=== PATIENT | female | born 1950 | race Caucasian/White ===

== ENCOUNTER 2018-03-02 13:52 | Emergency (ER) | payer MEDICARE, OTHER ==
[2018-03-02 14:14] LABS: ABSOLUTE EOSINOPHILS # (AUTO) 0.1 10^3/uL (0.0-0.6); ABSOLUTE LYMPHOCYTES (AUTO) 1.8 10^3/uL (0.5-4.7); ABSOLUTE MONOCYTES (AUTO) 0.3 10^3/uL (0.1-1.4); ABSOLUTE NEUT (AUTO) 3.5 10^3/uL (1.7-8.2); BASOPHILS % (AUTO) 0.7 % (0-2); EOSINOPHILS % (AUTO) 1.4 % (0-6); HEMATOCRIT 37.9 % (36.0-47.0); HEMOGLOBIN 12.6 g/dL (12.0-15.5); LYMPHOCYTES % (AUTO) 30.9 % (13-45); MEAN CORPUSCULAR HEMOGLOBIN 35.4 pg (27.0-33.4); MEAN CORPUSCULAR HGB CONC 33.2 g/dL (32.0-36.0); MEAN CORPUSCULAR VOLUME 107 fl (80-97); MONOCYTES % (AUTO) 5.8 % (3-13); PLATELET COUNT 107 10^3/uL (150-450); RED BLOOD COUNT 3.56 10^6/uL (3.72-5.28); RED CELL DISTRIBUTION WIDTH 20.2 % (11.5-14.0); SEGMENTED NEUTROPHILS % (AUTO) 61.2 % (42-78); TOTAL CELLS COUNTED % (AUTO) 100 %; WHITE BLOOD COUNT 5.8 10^3/uL (4.0-10.5)
[2018-03-02 14:40] LABS: ALANINE AMINOTRANSFERASE 25 U/L (9-52); ALBUMIN 2.7 g/dL (3.5-5.0); ALKALINE PHOSPHATASE 118 U/L (38-126); ANION GAP 13 (5-19); ASPARTATE AMINO TRANSFERASE 62 U/L (14-36); BILIRUBIN,DIRECT 0.5 mg/dL (0.0-0.4); BILIRUBIN,TOTAL 2.6 mg/dL (0.2-1.3); BLOOD UREA NITROGEN 22 mg/dL (7-20); CALCIUM 8.6 mg/dL (8.4-10.2); CARBON DIOXIDE 22 mmol/L (22-30); CHLORIDE 105 mmol/L (98-107); GLUCOSE 146 mg/dL (75-110); POTASSIUM 3.7 mmol/L (3.6-5.0); SODIUM 140.1 mmol/L (137-145); TOTAL PROTEIN 6.5 g/dL (6.3-8.2)
[2018-03-02] MEDS ORDERED: NORMAL SALINE 1000 ML 1,000 ML IV ONE (14:43)
--- NOTE | 2018-03-02 15:25 | ER Document Report ---
ED General - General Chief Complaint: General Weakness Stated Complaint: WEAKNESS Time Seen by Provider: 03/02/18 15:07 TRAVEL OUTSIDE OF THE [place] IN LAST 30 DAYS: No - HPI Notes: Patient is a 67-year-old female that presents to the emergency department for chief complaint of generalized weakness. Patient reports nausea with no vomiting, diarrhea and fatigue for the last few days. She had an appointment in [place] with her doctor today and was attempting to get a bath but was unable to get off the toilet. Patient states she sat there for 2 hours until family showed up to pick her up for her doctor's appointment. Family was unable to get her off the commode as well and called EMS. Patient has severe lymphedema and states she usually has a hard time getting around but this is more weakness than usual. She reports she has recently had foul-smelling urine and some urinary incontinence. She denies any fever, cough, congestion, shortness of breath, chest pain. She does state that she occasionally has some pain in her lower abdomen. Patient's family states that sometimes it looks like she has a mass on her right side. Past Medical History: Lymphedema Past Surgical History: Reviewed in chart Social History: Denies drugs alcohol and tobacco Family History: Reviewed and noncontributory for presenting illness Allergies: Reviewed, see documented allergy list. REVIEW OF SYSTEMS: CONSTITUTIONAL : No fever No chills No diaphoresis No recent illness Fatigue EENT: No vision changes No congestion No sore throat CARDIOVASCULAR: No chest pain No palpitations RESPIRATORY: No shortness of breath No cough No difficulty breathing GASTROINTESTINAL: abdominal pain nausea No vomiting diarrhea GENITOURINARY: No dysuria Urinary incontinence Foul-smelling urine No hematuria No difficulty urinating MUSCULOSKELETAL: No back pain No leg pain No arm pain SKIN: No rashes No lesions LYMPHATIC: No swollen, enlarged glands. NEUROLOGICAL: No lightheadedness No headache No weakness No paresthesias PSYCHIATRIC: No anxiety No depression PHYSICAL EXAMINATION: Vital signs reviewed, nursing noted reviewed. GENERAL: Obese and in no acute distress. HEAD: Atraumatic, normocephalic. EYES: Eyes appear normal, extraocular movements intact, sclera anicteric, conjunctiva are normal. ENT: nares patent, oropharynx clear without exudates. Moist mucous membranes. NECK: Normal range of motion, supple without lymphadenopathy LUNGS: Breath sounds clear to auscultation bilaterally and equal. No wheezes rales or rhonchi. HEART: Regular rate and rhythm without murmurs ABDOMEN: Body habitus limits abdominal exam. There are no appreciable masses. Patient has no tenderness or peritoneal signs EXTREMITIES: Nontender, good range of motion, severe lymphedema to bilateral legs. NEUROLOGICAL: No focal neurological deficits. Moves all extremities spontaneously Motor and sensory grossly intact on exam. PSYCH: Normal mood, normal affect. SKIN: Warm, Dry, normal turgor, left heel wound - Related Data Allergies/Adverse Reactions: acetaminophen [From Darvocet-N] Allergy (Verified 03/02/18 14:31) Penicillins Allergy (Verified 03/02/18 14:31) propoxyphene [From Darvocet-N] Allergy (Verified 03/02/18 14:31) Sulfa (Sulfonamide Antibiotics) Allergy (Verified 03/02/18 14:31) Past Medical History - Social History Smoking Status: Never Smoker Family History: Reviewed & Not Pertinent Physical Exam - Vital signs Vitals: Resp 20 03/02/18 14:02 Course - Re-evaluation Re-evalutation: 03/02/18 15:24 Vitals reviewed. Nursing notes reviewed. Patient has elevated total bilirubin on lab work and family reports a history of cirrhosis. She is having some vague complaints of swelling versus mass versus pain in her right side, CT scan will be ordered to further delineate etiology. 03/02/18 17:44 Patient reevaluated and is feeling better. CT scan shows portal hypertension likely related to her cirrhosis. She also has some surrounding ascites. She does have some erythema to the underside of her pannus and panniculitis was seen on CT scan. Patient will be started on Keflex for her panniculitis. She is not septic and has a normal leukocytosis. Patient's family feels comfortable with her returning home. She will follow with her primary care doctor for further management of her lymphedema and hepatic issues. She is stable at discharge. Laboratory 03/02/18 03/02/18 03/02/18 13:10 13:10 13:10 WBC 5.8 RBC 3.56 L Hgb 12.6 Hct 37.9 MCV 107 H MCH 35.4 H MCHC 33.2 RDW 20.2 H Plt Count 107 L Seg Neutrophils % 61.2 Lymphocytes % 30.9 Monocytes % 5.8 Eosinophils % 1.4 Basophils % 0.7 Absolute Neutrophils 3.5 Absolute Lymphocytes 1.8 Absolute Monocytes 0.3 Absolute Eosinophils 0.1 Absolute Basophils 0.0 Sodium 140.1 Potassium 3.7 Chloride 105 Carbon Dioxide 22 Anion Gap 13 BUN 22 H Creatinine 1.06 Est GFR ( Amer) > 60 Est GFR (Non-Af Amer) 52 L Glucose 146 H Calcium 8.6 Total Bilirubin 2.6 H Direct Bilirubin 0.5 H Neonat Total Bilirubin Not Reportable Neonat Direct Bilirubin Not Reportable Neonat Indirect Bili Not Reportable AST 62 H ALT 25 Alkaline Phosphatase 118 Creatine Kinase 44 Total Protein 6.5 Albumin 2.7 L Urine Color Urine Appearance Urine pH Ur Specific [place] Urine Protein Urine Glucose (UA) Urine Ketones Urine Blood Urine Nitrite Urine Bilirubin Urine Urobilinogen Ur Leukocyte Esterase Urine WBC (Auto) Urine RBC (Auto) U Hyaline Cast (Auto) Urine Bacteria (Auto) Squamous Epi Cells Auto U Non-Squamous Epis Auto Urine Mucus (Auto) Urine Ascorbic Acid 03/02/18 15:50 WBC RBC Hgb Hct MCV MCH MCHC RDW Plt Count Seg Neutrophils % Lymphocytes % Monocytes % Eosinophils % Basophils % Absolute Neutrophils Absolute Lymphocytes Absolute Monocytes Absolute Eosinophils Absolute Basophils Sodium Potassium Chloride Carbon Dioxide Anion Gap BUN Creatinine Est GFR ( Amer) Est GFR (Non-Af Amer) Glucose Calcium Total Bilirubin Direct Bilirubin Neonat Total Bilirubin Neonat Direct Bilirubin Neonat Indirect Bili AST ALT Alkaline Phosphatase Creatine Kinase Total Protein Albumin Urine Color YELLOW Urine Appearance SLIGHTLY-CLOUDY Urine pH 7.0 Ur Specific [place] 1.008 Urine Protein NEGATIVE Urine Glucose (UA) 50 H Urine Ketones NEGATIVE Urine Blood MODERATE H Urine Nitrite NEGATIVE Urine Bilirubin NEGATIVE Urine Urobilinogen NEGATIVE Ur Leukocyte Esterase NEGATIVE Urine WBC (Auto) 7 Urine RBC (Auto) 1 U Hyaline Cast (Auto) 1 Urine Bacteria (Auto) TRACE Squamous Epi Cells Auto 5 U Non-Squamous Epis Auto 2 Urine Mucus (Auto) RARE Urine Ascorbic Acid NEGATIVE Abdomen/Pelvis CT 03/02/18 15:20 IMPRESSION: Portal hypertension with splenomegaly and ascites. Post cholecystectomy Panniculitis with diffuse edema throughout the abdominal wall panniculus - Vital Signs Vital signs: Temp Pulse Resp BP Pulse Ox 97.6 F 19 123/76 96 03/02/18 14:12 03/02/18 17:01 03/02/18 17:00 03/02/18 17:01 - Laboratory Result Diagrams: 03/02/18 13:10 03/02/18 13:10 Laboratory results interpreted by me: 03/02/18 03/02/18 03/02/18 13:10 13:10 15:50 RBC 3.56 L MCV 107 H MCH 35.4 H RDW 20.2 H Plt Count 107 L BUN 22 H Est GFR (Non-Af Amer) 52 L Glucose 146 H Total Bilirubin 2.6 H Direct Bilirubin 0.5 H AST 62 H Albumin 2.7 L Urine Glucose (UA) 50 H Urine Blood MODERATE H Discharge - Discharge Clinical Impression: Portal hypertension, Panniculitis, Generalized weakness Ascites Qualifiers: Ascites type: other type Qualified Code(s): R18.8 - Other ascites Condition: Stable Disposition: HOME, SELF-CARE Instructions: Cellulitis ([facility]) Additional Instructions: Please return to the emergency department if you have any worsening, or concern of your symptoms. Please return to the emergency department if you develop chest pain, difficulty breathing, severe abdominal pain, or ongoing vomiting. Please follow-up with your primary care physician in 2-3 days and any other recommended physicians. If prescribed, take all medications as directed. If you have any questions or concerns do not hesitate to return the emergency department for evaluation. Prescriptions: Cephalexin Monohydrate [Keflex 500 mg Capsule] 500 mg PO Q6H 5 Days capsule Referrals: ROBERTO WASHINGTON MD [Primary Care Provider] - Follow up in 3-5 days
[2018-03-02 16:22] LABS: APPEARANCE,URINE SLIGHTLY-CLOUDY; BILIRUBIN,URINE NEGATIVE (NEGATIVE); COLOR,URINE YELLOW; GLUCOSE, URINE 50 mg/dL (NEGATIVE); KETONES,URINE NEGATIVE (NEGATIVE); LEUKOCYTE ESTERASE,URINE NEGATIVE (NEGATIVE); NITRITE,URINE NEGATIVE (NEGATIVE); PROTEIN,URINE NEGATIVE (NEGATIVE); URINE SPECIFIC GRAVITY 1.008; UROBILINOGEN,URINE NEGATIVE mg/dL (<2.0)
--- NOTE | 2018-03-02 16:40 | RADIOLOGY REPORT (SQ) ---
EXAM DESCRIPTION: CT ABD/PELVIS WITH IV ONLY COMPLETED DATE/TIME: 03/02/2018 4:26 pm REASON FOR STUDY: elevated bili, RUQ pain COMPARISON: None. TECHNIQUE: CT scan of the abdomen and pelvis performed using helical scanning technique with dynamic intravenous contrast injection. No oral contrast. Images reviewed with lung, soft tissue, and bone windows. Reconstructed coronal and sagittal MPR images reviewed. Delayed images for evaluation of the urinary system also acquired. All images stored on PACS. All CT scanners at this facility use dose modulation, iterative reconstruction, and/or weight based d osing when appropriate to reduce radiation dose to as low as reasonably achievable (ALARA). [facility]: Dose Right [facility]: CareDose [facility]: Dose Right [facility]: Teradose 4D [facility]: Circadence CONTRAST TYPE AND DOSE: contrast/concentration: Isovue 350.00 mg/ml; Total Contrast Delivered: 100.0 ml; Total Saline Delivered: 72.0 ml RENAL FUNCTION: Creatinine 1.0 RADIATION DOSE: CT Rad equipment meets quality standard of care and radiation dose reduction techniq ues were employed. CTDIvol: 20.0 - 28.8 mGy. DLP: 3640 mGy-cm.. LIMITATIONS: None. FINDINGS: LOWER CHEST: No significant findings. No nodules or infiltrates. LIVER: Nodular contour from cirrhosis. No gross masses. No hepatomegaly. SPLEEN: 16 cm in greatest craniocaudad length. No focal lesions PANCREAS: No masses. No significant calcifications. No adjacent inflammation or peripancreatic fluid collections. Pancreatic duct not dilated. GALLBLADDER: Surgically absent ADRENAL GLANDS: No significant masses or asymmetry. KIDNEYS AND URETERS: No solid masses. No significant calcifications. No hydronephrosis or hydrour eter. Horseshoe kidney. AORTA AND VESSELS: No aneurysm. No dissection. Renal arteries, SMA, celiac without stenosis. RETROPERITONEUM: No retroperitoneal adenopathy, hemorrhage or masses. BOWEL AND PERITONEAL CAVITY: Moderate amount of ascites throughout the abdomen and pelvis. No oral c ontrast. No CT evidence of bowel obstruction or free intraperitoneal air. APPENDIX: Not identified PELVIS: Moderate free pelvic fluid. Normal size female pelvic organs. Urinary bladder unremarkable ABDOMINAL WALL: Fat containing umbilical hernia. Diffuse panniculitis with increased density of the abdominal wall fat BONES: No significant or acute findings. OTHER: No other significant finding. IMPRESSION: Portal hypertension with splenomegaly and ascites. Post cholecystectomy Panniculitis with diffuse edema throughout the abdominal wall panniculus TECHNICAL DOCUMENTATION: JOB ID: [id number] Quality ID # [id number]: Final reports with documentation of one or more dose reduction techniques (e.g., Au tomated exposure control, adjustment of the mA and/or kV according to patient size, use of iterative reconstruction technique) 2010 [employer]- All Rights Reserved Reading location - IP/workstation name: [email or web address]
[2018-03-02 18:23] VITALS: BP 153/92
== END 2018-03-02 18:29 | disposition home or self-care (01) ==
LOC: ER 13:52
DX: K76.6 Portal hypertension (principal); M79.3 Panniculitis, unspecified; R18.8 Other ascites; R53.1 Weakness; R11.0 Nausea; R32 Unspecified urinary incontinence; Z88.6 Allergy status to analgesic agent; Z88.0 Allergy status to penicillin; Z88.2 Allergy status to sulfonamides; Z90.49 Acquired absence of other specified parts of digestive tract
CPT/HCPCS: 99285; 96360; 36415; 82550; 85025; 80053; 81001; 74177; J7030